=== PATIENT | male | born 1960 | race Two or more races ===

== ENCOUNTER 2023-08-11 14:40 | Emergency (ER) | payer MEDICAID, OTHER ==
[~2023-08-11] VITALS: Ht 167.6 cm; Wt 84.0 kg
[2023-08-11] MEDS: HYDROcodone-ACET 10/325MG TAB PO ONE (15:43)
[2023-08-11] MEDS ORDERED: IBUP-1455 PO (21:14)
[2023-08-11] MEDS ORDERED: ACE3T PO (21:14)
[2023-08-11 21:39] VITALS: BP 147/80; PULSE 98; RESP 18; TEMP 98; O2SAT 98
== END 2023-08-11 21:38 | disposition home or self-care (01) ==
LOC: ER 14:40 → EDBD 14:40 → ER 21:38
DX: S16.1XXA Strain of muscle, fascia and tendon at neck level, initial encounter (principal); S46.812A Strain of other muscles, fascia and tendons at shoulder and upper arm level, left arm, initial encounter; S46.811A Strain of other muscles, fascia and tendons at shoulder and upper arm level, right arm, initial encounter; S80.12XA Contusion of left lower leg, initial encounter; V89.2XXA Person injured in unspecified motor-vehicle accident, traffic, initial encounter; Y93.I9 Activity, other involving external motion; Y92.89 Other specified places as the place of occurrence of the external cause; Y99.8 Other external cause status
CPT/HCPCS: 72040; 72125; 73030

== ENCOUNTER 2023-12-12 14:01 | Inpatient (IN) | payer MEDICAID ==
[~2023-12-12] VITALS: Ht 162.6 cm; Wt 91.2 kg
[~2023-12-12 14:01] MED LIST: ACE3T PO; IBUP-1455 PO
[2023-12-12] MEDS: TETANUS-DIPTH-ACEL PERTUSSIS 0.5ML SYR Tdap IM ONE (17:00)
[2023-12-12 17:03] LABS: Basophils # (auto) 0.1 10 ^3/uL (0-0.2); Eosinophils # (auto) 0.2 10 ^3/uL (0-0.8); Eosinophils % (auto) 3.3 % (0.0-7.0); Hematocrit 35.7 % (41.0-53.0); Hemoglobin 12.2 g/dL (13.5-17.5); Lymphocytes # (auto) 1.3 10 ^3/uL (0.4-5.4); Lymphocytes % (auto) 20.7 % (10.0-50.0); Mean Corpuscular Hemoglobin 29.5 pg (28.0-32.0); Mean Corpuscular Hgb Conc. 34.2 g/dL (32.0-36.0); Mean Corpuscular Volume 86.2 fL (80.0-100.0); Monocytes # (auto) 0.3 10 ^3/uL (0-1.3); Neutrophils # (auto) 4.4 10 ^3/uL (1.6-8.6); Nucleated Red Blood Cells % 0.1 %; Platelet Count (auto) 196 10^3/uL (140-450); Red Blood Cells 4.15 10^6/uL (4.5-5.90); Red Cell Distribution Width 13.9 % (11.8-14.3); White Blood Cell 6.3 10^3/uL (4.4-10.8)
[2023-12-12 17:25] LABS: Alanine Aminotransferase 27 U/L (7-40); Albumin 4.5 g/dL (3.2-4.8); Alkaline Phosphatase 113 U/L (46-116); Anion Gap 5 (5-15); Aspartate Aminotransferase 19 U/L (13-40); BUN/Creatinine Ratio 16.5 (10.0-20.0); Bilirubin, Total 0.5 mg/dL (0.2-1.0); Blood Urea Nitrogen 37 mg/dL (9-23); CRP High Sensitivity 0.33 mg/dL (<1.0); Calcium 10.4 mg/dL (8.7-10.4); Carbon Dioxide 26 mmol/L (20-30); Chloride 109 mmol/L (98-107); Glucose 199 mg/dL (74-106); Potassium 4.9 mmol/L (3.5-5.1); Sodium 140 mmol/L (136-145); Total Protein 7.7 g/dL (5.7-8.2)
[2023-12-12 18:10] LABS: Erythrocyte Sedimentation Rate 28 mm/hr (0-20)
[2023-12-12] MEDS ORDERED: ONDANSETRON HCL 4 MG/2 ML VIAL IV PRN (19:30)
[2023-12-12] MEDS ORDERED: ACETAMINOPHEN 325 MG TAB PO PRN (19:30)
[2023-12-12] MEDS ORDERED: HYDROcodone-ACET 5/325MG TAB PO PRN (19:30)
[2023-12-12] MEDS ORDERED: HYDROmorphone HCL 2 MG/ML VL/or syr IV PRN (19:30)
[2023-12-12 20:05] VITALS: PULSE 90; O2SAT 97
[2023-12-12 20:18] LABS: Urine Bacteria FEW /hpf (None Seen); Urine Blood Negative /uL (Negative); Urine Clarity Clear (Clear); Urine Color Light-Yellow (Yellow); Urine Protein, UAD 1+ (Negative); Urine Urobilinogen Normal (Negative); Urine WBC <1 /hpf (0 - 3)
[2023-12-12 20:22] LABS: Creatinine, Urine 115.16 mg/dL (30.0-125.0)
[2023-12-12] MEDS: hydrALAZINE HCL 20 MG/ML VL IV PRN (21:14)
[2023-12-12] MEDS: LACTATED RINGER'S 1,000 ML IV ONE (22:25)
[2023-12-12] MEDS: SODIUM CHLOR 0.9% PF (SALINE LOCK) 10ML VIAL/SYR IV SCH (22:26)
[2023-12-12 23:37] VITALS: PULSE 87; RESP 18; O2SAT 98
[2023-12-13] VITALS (7 sets, daily range): BP systolic 112–153; BP diastolic 66–87; PULSE 77–89; RESP 16–19; TEMP 97.7–98.3; O2SAT 96–98
[2023-12-13] MEDS ORDERED: INSU1INJ19 SC (01:16)
[2023-12-13] MEDS ORDERED: SUCR1SUS5 PO (01:16)
[2023-12-13] MEDS ORDERED: ALOG1TAB2 PO (01:16)
[2023-12-13] MEDS ORDERED: FAMO20TA10 PO (01:16)
[2023-12-13] MEDS ORDERED: INSU100I51 SC (01:16)
[2023-12-13] MEDS ORDERED: ATOR20TA50 PO (01:16)
[2023-12-13] MEDS ORDERED: ASPI1TAB20 PO (01:16)
[2023-12-13] MEDS ORDERED: DICL1.3P TD (01:16)
[2023-12-13] MEDS ORDERED: PNEUMOCOCCAL VACC POLYS 25 MCG/0.5 ML VIAL IM ONE (02:15)
[2023-12-13 06:30] LABS: Basophils # (auto) 0.1 10 ^3/uL (0-0.2); Basophils % (auto) 0.9 % (0.0-2.0); Eosinophils # (auto) 0.2 10 ^3/uL (0-0.8); Hematocrit 32.2 % (41.0-53.0); Hemoglobin 11.3 g/dL (13.5-17.5); Lymphocytes # (auto) 1.3 10 ^3/uL (0.4-5.4); Lymphocytes % (auto) 21.1 % (10.0-50.0); Mean Corpuscular Hemoglobin 29.9 pg (28.0-32.0); Mean Corpuscular Hgb Conc. 34.9 g/dL (32.0-36.0); Mean Corpuscular Volume 85.7 fL (80.0-100.0); Monocytes # (auto) 0.3 10 ^3/uL (0-1.3); Neutrophils # (auto) 4.5 10 ^3/uL (1.6-8.6); Nucleated Red Blood Cells % 0.1 %; Platelet Count (auto) 162 10^3/uL (140-450); Red Blood Cells 3.76 10^6/uL (4.5-5.90); White Blood Cell 6.4 10^3/uL (4.4-10.8)
[2023-12-13 06:50] LABS: Alanine Aminotransferase 21 U/L (7-40); Albumin 3.6 g/dL (3.2-4.8); Alkaline Phosphatase 71 U/L (46-116); Anion Gap 7 (5-15); Aspartate Aminotransferase 15 U/L (13-40); BUN/Creatinine Ratio 18.5 (10.0-20.0); Blood Urea Nitrogen 30 mg/dL (9-23); Calcium 9.5 mg/dL (8.7-10.4); Carbon Dioxide 22 mmol/L (20-30); Chloride 111 mmol/L (98-107); Glucose 119 mg/dL (74-106); Potassium 4.2 mmol/L (3.5-5.1); Sodium 140 mmol/L (136-145)
[2023-12-13 06:51] LABS: Bilirubin, Total 0.5 mg/dL (0.2-1.0); Total Protein 6.1 g/dL (5.7-8.2)
[2023-12-13] MEDS ORDERED: VANCOMYCIN PER PHARMACY 0 MG IV SCH (13:00)
[2023-12-13] MEDS ORDERED: DEXTROSE (50%) 50ML SYRG IV PRN (13:00)
[2023-12-13] MEDS: VANCOMYCIN 1GM/200ML 200 ML IV ONE (13:30)
[2023-12-13 15:47] LABS: Amphetamine Screen, Urine Neg (NEGATIVE); Benzodiazephine Screen, Urine Neg (NEGATIVE)
[2023-12-13 15:48] LABS: Barbiturate Scree,Urine Neg (NEGATIVE); Cocaine Screen, Urine Neg (NEGATIVE); Opiate Scree,Urine Neg (NEGATIVE)
[2023-12-13 15:49] LABS: Cannabinoid Screen, Urine Neg (NEGATIVE); Phencyclidine Screen, Urine Neg (NEGATIVE)
[2023-12-13] MEDS: SODIUM CHLORIDE 0.9% 1,000 ML IV SCH (17:15)
[2023-12-13] MEDS: ACCU-CHEK COMFORT CURVE STRIP VI SCH (17:15)
[2023-12-13] MEDS: InsuLIN REG 1unit/0.01ml Soln (100units/ml) SC SCH (18:06)
[2023-12-13] MEDS: MEROPENEM 1GM IVPB 50 ML IV SCH (22:04)
[2023-12-14] VITALS (7 sets, daily range): BP systolic 115–159; BP diastolic 68–88; PULSE 73–86; RESP 14–18; TEMP 97.6–98.6; O2SAT 86–99
[2023-12-14 06:08] LABS: Basophils # (auto) 0.1 10 ^3/uL (0-0.2); Basophils % (auto) 1.1 % (0.0-2.0); Eosinophils # (auto) 0.2 10 ^3/uL (0-0.8); Eosinophils % (auto) 3.8 % (0.0-7.0); Hemoglobin 12.4 g/dL (13.5-17.5); Lymphocytes # (auto) 1.4 10 ^3/uL (0.4-5.4); Lymphocytes % (auto) 23.2 % (10.0-50.0); Mean Corpuscular Hemoglobin 29.9 pg (28.0-32.0); Mean Corpuscular Hgb Conc. 34.6 g/dL (32.0-36.0); Mean Corpuscular Volume 86.5 fL (80.0-100.0); Monocytes # (auto) 0.3 10 ^3/uL (0-1.3); Monocytes % (auto) 5.8 % (0.0-12.0); Neutrophils # (auto) 3.9 10 ^3/uL (1.6-8.6); Neutrophils % (auto) 66.1 % (37.0-80.0); Platelet Count (auto) 169 10^3/uL (140-450); Red Blood Cells 4.16 10^6/uL (4.5-5.90); Red Cell Distribution Width 13.9 % (11.8-14.3); White Blood Cell 5.9 10^3/uL (4.4-10.8)
[2023-12-14 06:12] LABS: Alanine Aminotransferase 17 U/L (7-40); Albumin 4.2 g/dL (3.2-4.8); Alkaline Phosphatase 79 U/L (46-116); Anion Gap 4 (5-15); Aspartate Aminotransferase 16 U/L (13-40); BUN/Creatinine Ratio 14.7 (10.0-20.0); Blood Urea Nitrogen 26 mg/dL (9-23); Calcium 9.9 mg/dL (8.7-10.4); Carbon Dioxide 25 mmol/L (20-30); Chloride 110 mmol/L (98-107); Glucose 135 mg/dL (74-106); LDL Cholesterol 63 mg/dL (< 100); Magnesium 1.9 mg/dL (1.6-2.6); Potassium 4.6 mmol/L (3.5-5.1); Sodium 139 mmol/L (136-145); Triglycerides 162 mg/dL (< 150)
[2023-12-14 06:13] LABS: Bilirubin, Total 0.5 mg/dL (0.2-1.0); Cholesterol 141 mg/dL (< 200); HDL Cholesterol 51 mg/dL (40-59); Total Protein 7.1 g/dL (5.7-8.2)
[2023-12-14] MEDS: VANCOMYCIN 1GM/200ML 200 ML IV ONE (09:45)
[2023-12-15] VITALS (9 sets, daily range): BP systolic 95–160; BP diastolic 49–88; PULSE 75–86; RESP 14–18; TEMP 97.1–98.9; O2SAT 95–100
[2023-12-15 06:07] LABS: Basophils # (auto) 0 10 ^3/uL (0-0.2); Basophils % (auto) 0.7 % (0.0-2.0); Eosinophils # (auto) 0.2 10 ^3/uL (0-0.8); Hematocrit 36.1 % (41.0-53.0); Lymphocytes # (auto) 1.7 10 ^3/uL (0.4-5.4); Lymphocytes % (auto) 28.6 % (10.0-50.0); Mean Corpuscular Hemoglobin 28.7 pg (28.0-32.0); Mean Corpuscular Hgb Conc. 33.4 g/dL (32.0-36.0); Monocytes # (auto) 0.4 10 ^3/uL (0-1.3); Monocytes % (auto) 6.7 % (0.0-12.0); Neutrophils # (auto) 3.7 10 ^3/uL (1.6-8.6); Platelet Count (auto) 169 10^3/uL (140-450); White Blood Cell 6.1 10^3/uL (4.4-10.8)
[2023-12-15 06:33] LABS: Alanine Aminotransferase 24 U/L (7-40); Albumin 3.8 g/dL (3.2-4.8); Alkaline Phosphatase 85 U/L (46-116); Anion Gap 5 (5-15); Aspartate Aminotransferase 17 U/L (13-40); BUN/Creatinine Ratio 17.4 (10.0-20.0); Bilirubin, Total 0.5 mg/dL (0.2-1.0); Blood Urea Nitrogen 32 mg/dL (9-23); Calcium 9.8 mg/dL (8.7-10.4); Carbon Dioxide 25 mmol/L (20-30); Chloride 107 mmol/L (98-107); Glucose 167 mg/dL (74-106); Sodium 137 mmol/L (136-145); Total Protein 6.4 g/dL (5.7-8.2)
[2023-12-15 16:17] LABS: INR 1.04 (0.9-1.15); Partial Thromboplastin Time 28.7 SEC (24.5-34.5)
[2023-12-15] MEDS: VANCOMYCIN 1GM/200ML 200 ML IV ONE (18:53)
[2023-12-16] VITALS (9 sets, daily range): BP systolic 95–168; BP diastolic 60–88; PULSE 75–92; RESP 16–18; TEMP 97.7–98.2; O2SAT 95–100
[2023-12-16 06:38] LABS: Basophils # (auto) 0.1 10 ^3/uL (0-0.2); Basophils % (auto) 1.1 % (0.0-2.0); Eosinophils # (auto) 0.2 10 ^3/uL (0-0.8); Eosinophils % (auto) 3.8 % (0.0-7.0); Hematocrit 35.3 % (41.0-53.0); Hemoglobin 12.3 g/dL (13.5-17.5); Lymphocytes # (auto) 1.7 10 ^3/uL (0.4-5.4); Lymphocytes % (auto) 26.7 % (10.0-50.0); Mean Corpuscular Hgb Conc. 34.9 g/dL (32.0-36.0); Mean Corpuscular Volume 86.1 fL (80.0-100.0); Monocytes # (auto) 0.4 10 ^3/uL (0-1.3); Monocytes % (auto) 6.4 % (0.0-12.0); Nucleated Red Blood Cells % 0.1 %; Platelet Count (auto) 159 10^3/uL (140-450); Red Cell Distribution Width 13.8 % (11.8-14.3); White Blood Cell 6.4 10^3/uL (4.4-10.8)
[2023-12-16 06:50] LABS: Alanine Aminotransferase 22 U/L (7-40); Albumin 4.1 g/dL (3.2-4.8); Alkaline Phosphatase 88 U/L (46-116); Anion Gap 5 (5-15); Aspartate Aminotransferase 16 U/L (13-40); BUN/Creatinine Ratio 14.8 (10.0-20.0); Bilirubin, Total 0.5 mg/dL (0.2-1.0); Blood Urea Nitrogen 29 mg/dL (9-23); Calcium 9.8 mg/dL (8.7-10.4); Carbon Dioxide 26 mmol/L (20-30); Chloride 107 mmol/L (98-107); Glucose 142 mg/dL (74-106); Potassium 4.5 mmol/L (3.5-5.1); Sodium 138 mmol/L (136-145); Total Protein 6.9 g/dL (5.7-8.2)
[2023-12-16] MEDS: LIDOCAINE 1% (LOCAL ANESTH.) PF 5ml SDV ID ONE (09:41)
[2023-12-16] MEDS: SODIUM CHLOR 0.9% PF (SALINE LOCK) 10ML VIAL/SYR IV SCH (10:35)
[2023-12-16] MEDS: VANCOMYCIN 500 MG in D5W 5% 100 ML IV ONE (11:43)
[2023-12-17] VITALS (8 sets, daily range): BP systolic 92–158; BP diastolic 58–88; PULSE 74–85; RESP 15–18; TEMP 98–98.2; O2SAT 96–97
[2023-12-17 06:14] LABS: Basophils # (auto) 0.1 10 ^3/uL (0-0.2); Eosinophils # (auto) 0.3 10 ^3/uL (0-0.8); Eosinophils % (auto) 3.9 % (0.0-7.0); Hematocrit 35.5 % (41.0-53.0); Hemoglobin 12.5 g/dL (13.5-17.5); Lymphocytes # (auto) 1.6 10 ^3/uL (0.4-5.4); Lymphocytes % (auto) 23.7 % (10.0-50.0); Mean Corpuscular Hemoglobin 30.6 pg (28.0-32.0); Mean Corpuscular Hgb Conc. 35.3 g/dL (32.0-36.0); Mean Corpuscular Volume 86.6 fL (80.0-100.0); Monocytes # (auto) 0.5 10 ^3/uL (0-1.3); Monocytes % (auto) 6.8 % (0.0-12.0); Neutrophils # (auto) 4.4 10 ^3/uL (1.6-8.6); Neutrophils % (auto) 64.6 % (37.0-80.0); Platelet Count (auto) 159 10^3/uL (140-450); Red Cell Distribution Width 13.7 % (11.8-14.3); White Blood Cell 6.8 10^3/uL (4.4-10.8)
[2023-12-17 06:17] LABS: Alanine Aminotransferase 27 U/L (7-40); Alkaline Phosphatase 97 U/L (46-116); Anion Gap 4 (5-15); Aspartate Aminotransferase 17 U/L (13-40); BUN/Creatinine Ratio 14.4 (10.0-20.0); Blood Urea Nitrogen 27 mg/dL (9-23); Carbon Dioxide 26 mmol/L (20-30); Chloride 107 mmol/L (98-107); Glucose 148 mg/dL (74-106); Magnesium 2.1 mg/dL (1.6-2.6); Potassium 4.3 mmol/L (3.5-5.1); Sodium 137 mmol/L (136-145)
[2023-12-17 06:18] LABS: Bilirubin, Total 0.5 mg/dL (0.2-1.0)
[2023-12-17] MEDS: VANCOMYCIN 750mg/150ml 150 ML IV ONE (12:02)
[2023-12-18 01:00] VITALS: BP 98/63; PULSE 77; RESP 18; TEMP 98.3; O2SAT 95
[2023-12-18 05:00] VITALS: BP 103/60; PULSE 73; RESP 17; TEMP 97.8; O2SAT 97
[2023-12-18 07:38] LABS: Anion Gap 6 (5-15); Calcium 9.9 mg/dL (8.7-10.4); Carbon Dioxide 25 mmol/L (20-30); Chloride 104 mmol/L (98-107); Potassium 4.6 mmol/L (3.5-5.1); Sodium 135 mmol/L (136-145)
[2023-12-18 07:44] LABS: BUN/Creatinine Ratio 17.6 (10.0-20.0); Blood Urea Nitrogen 29 mg/dL (9-23); Glucose 126 mg/dL (74-106)
[2023-12-18 09:00] VITALS: BP 150/81; PULSE 82; RESP 18; TEMP 98.1; O2SAT 97
[2023-12-18] MEDS: VANCOMYCIN 1GM/200ML 200 ML IV ONE (12:36)
[2023-12-18 13:00] VITALS: BP 157/84; PULSE 83; RESP 16; TEMP 97.8; O2SAT 99
[2023-12-18 16:44] VITALS: BP 146/80; PULSE 83; RESP 18; TEMP 98.2; O2SAT 97
[2023-12-18 21:00] VITALS: BP 149/83; PULSE 86; RESP 17; TEMP 98; O2SAT 95
[2023-12-18] MEDS: ERTAPENEM SOD INJ 1 GM in SODIUM CHL 0.9% 50 ML IV SCH (21:55)
[2023-12-19 05:00] VITALS: BP 115/66; PULSE 74; RESP 18; TEMP 97.8; O2SAT 96
[2023-12-19 07:18] LABS: Anion Gap 7 (5-15); Carbon Dioxide 25 mmol/L (20-30); Chloride 105 mmol/L (98-107); Potassium 4.2 mmol/L (3.5-5.1); Sodium 137 mmol/L (136-145)
[2023-12-19 07:19] LABS: Calcium 10.1 mg/dL (8.7-10.4)
[2023-12-19 07:24] LABS: BUN/Creatinine Ratio 19.7 (10.0-20.0); Blood Urea Nitrogen 34 mg/dL (9-23); Glucose 132 mg/dL (74-106)
[2023-12-19 09:22] VITALS: BP 125/81; PULSE 90; RESP 17; TEMP 98.2; O2SAT 96
[2023-12-19] MEDS: VANCOMYCIN 1GM/200ML 200 ML IV ONE (11:19)
[2023-12-19 12:24] VITALS: BP 158/84; PULSE 81; RESP 17; TEMP 97.7; O2SAT 98
[2023-12-19 17:00] VITALS: BP 111/72; PULSE 84; RESP 16; TEMP 98.4; O2SAT 97
[2023-12-19 20:00] VITALS: PULSE 95; RESP 22; O2SAT 98
[2023-12-19 22:07] VITALS: BP 138/80; PULSE 95; RESP 22; TEMP 98.1; O2SAT 98
[2023-12-20] VITALS (7 sets, daily range): BP systolic 97–163; BP diastolic 55–97; PULSE 64–83; RESP 18–22; TEMP 97.9–99.1; O2SAT 97–100
[2023-12-20 08:09] LABS: Anion Gap 4 (5-15); Carbon Dioxide 25 mmol/L (20-30); Chloride 106 mmol/L (98-107); Potassium 4.8 mmol/L (3.5-5.1); Sodium 135 mmol/L (136-145)
[2023-12-20 08:10] LABS: Calcium 9.9 mg/dL (8.7-10.4)
[2023-12-20 08:14] LABS: Glucose 153 mg/dL (74-106)
[2023-12-20 08:15] LABS: BUN/Creatinine Ratio 29.6 (10.0-20.0)
[2023-12-20 08:16] LABS: Blood Urea Nitrogen 50 mg/dL (9-23)
[2023-12-20] MEDS: VANCOMYCIN 1.25GM/250ML 250 ML IV ONE (17:01)
[2023-12-21 05:33] VITALS: BP 102/64; PULSE 72; RESP 19; TEMP 98.5; O2SAT 99
[2023-12-21 09:00] VITALS: BP 101/65; PULSE 70; RESP 18; TEMP 98.2; O2SAT 95
[2023-12-21 10:23] LABS: Chloride 106 mmol/L (98-107); Potassium 4.5 mmol/L (3.5-5.1); Sodium 137 mmol/L (136-145)
[2023-12-21 10:24] LABS: Anion Gap 8 (5-15); Carbon Dioxide 23 mmol/L (20-30)
[2023-12-21 10:25] LABS: Calcium 10.1 mg/dL (8.7-10.4)
[2023-12-21 10:29] LABS: Glucose 130 mg/dL (74-106)
[2023-12-21 10:30] LABS: BUN/Creatinine Ratio 29.9 (10.0-20.0); Blood Urea Nitrogen 44 mg/dL (9-23)
[2023-12-21] MEDS: VANCOMYCIN 1GM/200ML 200 ML IV SCH (11:04)
[2023-12-21 13:00] VITALS: BP 142/82; PULSE 80; RESP 16; TEMP 97.9; O2SAT 98
== END 2023-12-21 15:00 | disposition left against medical advice (07) | DRG 344 ==
LOC: ER 14:01 → OVERFLOW 19:23 → WEST WING 23:30
PROVIDERS: ADMIT Internal Medicine; ATTEND Internal Medicine
PROC: 02HV33Z Insertion of Infusion Device into Superior Vena Cava, Percutaneous Approach (ICD-10-PCS; principal; 2023-12-16)
PROC: B548ZZA Ultrasonography of Superior Vena Cava, Guidance (ICD-10-PCS; 2023-12-16)
DX: E11.69 Type 2 diabetes mellitus with other specified complication (principal); M86.8X7 Other osteomyelitis, ankle and foot; N17.0 Acute kidney failure with tubular necrosis; E11.22 Type 2 diabetes mellitus with diabetic chronic kidney disease; E11.621 Type 2 diabetes mellitus with foot ulcer; S91.331A Puncture wound without foreign body, right foot, initial encounter; L03.031 Cellulitis of right toe; L97.519 Non-pressure chronic ulcer of other part of right foot with unspecified severity; S90.934A Unspecified superficial injury of right lesser toe(s), initial encounter; I12.9 Hypertensive chronic kidney disease with stage 1 through stage 4 chronic kidney disease, or unspecified chronic kidney disease; E78.5 Hyperlipidemia, unspecified; N18.32 Chronic kidney disease, stage 3b; Z53.29 Procedure and treatment not carried out because of patient's decision for other reasons; X58.XXXA Exposure to other specified factors, initial encounter; Y93.89 Activity, other specified; Y92.89 Other specified places as the place of occurrence of the external cause; Y99.8 Other external cause status; Z79.4 Long term (current) use of insulin; Z79.899 Other long term (current) drug therapy
CPT/HCPCS: 36415; 36569; 71045; 73700; 73718; 76775; 80048; 80053; 80061; 80202; 80307; 81001; 82306; 82565; 82570; 82962; 83036; 83735; 83970; 84100; 84156; 84300; 85025; 85610; 85652; 85730; 86141; 90715; G0378; J1335; J1815; J2185; J7060